=== PATIENT | female | born 1945 | race Caucasian/White ===

== ENCOUNTER → 2020-06-09 19:07 | Outpatient (REF) | payer OTHER, SELFPAY | LOC: HO.SL 19:07 | PROVIDERS: PCP Pediatrics; Visit Provider Nurse Practitioner Family | DX: R53.83 Other fatigue (principal); R40.0 Somnolence; G47.33 Obstructive sleep apnea (adult) (pediatric) | CPT/HCPCS: 95810 ==

== ENCOUNTER → 2023-10-26 07:49 | Outpatient (BNVA) | payer BC, MEDICAID, SELFPAY | PROVIDERS: PCP Pediatrics; Visit Provider Physician Assistant Surgical ==

== ENCOUNTER 2023-11-19 09:23 | Outpatient (AMB) | payer BC, MEDICAID, SELFPAY ==
--- NOTE | 2023-11-19 09:41 | MHC.OFFVISWM ---
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 Required: No Allergies oseltamivir Allergy (Unknown, Verified 11/19/23 09:44) Abdominal Pain penicillin G Allergy (Unknown, Verified 11/19/23 09:44) Abdominal Pain Medication List - Last Reconciled 11/19/23 by TAL Ruano acyclovir 400 mg PO DAILY apixaban (Eliquis) 5 mg PO BID furosemide (Lasix) 40 mg PO DAILY levothyroxine 50 mcg PO DAILY lorazepam (Ativan) 0.5 mg PO DAILY PRN omeprazole 40 mg PO DAILY Oxygen Home Use As directed HPI HPI Comments History of Present Illness Details Pt is here to re-start the [facility] Weight Management medical weight loss program. She participate in the in the medical weight loss program in 2019, she was successful and returns for further guidance. Since that time, she has gained some weight. She has developed fairly significant back pain that changed recently over the last 2 weeks when she was at the gym exercising. Several days after exercising, approximately 2 weeks ago, she began to feel a different back pain. She is scheduled to follow up with her primary care physician within a couple of weeks. Current weight is 193.2 pounds with a BMI of 35.9. She has tried multiple methods of weight loss including previous medical weight loss clinic without permanent results. She wakes at:?4 am, and goes to bed at?7 pm. Dinner is at 330 pm. Breakfast: whey protein (ON, 24 gm pro per scoop) from [employer] w 12 oz skim milk and frozen banana AM snack: skip Lunch: meat, maybe 4-6 oz and veg PM snack: cookies, fruit Dinner: cheerios w skim milk or 3-4 slices cheese After dinner: 3 ritz crackers Other snacks: as above Liquids: 24 oz water, 16 oz cranberry juice Alcohol/marijuana/tobacco intake: none Exercise: none in 2 weeks since hurting her back GERD score: 16 JAVIER score: 1 ESS score: 2 QOL score: 86 [facility] Surgical History Hx of lumpectomy Hx of hysterectomy Hx of cholecystectomy Review of Systems Const All systems reviewed & are unremarkable except as noted in HPI and below Physical Exam Const General: cooperative, healthy appearing and no acute distress Orientation/consciousness: patient oriented x3 Limitations: ambulation with walker HEENT Head: Yes normal to inspection Ears: hearing grossly normal bilaterally General nose exam: Normal external nose present Face and sinus: Yes normal facial exam Eyes General: appearance normal, both eyes and all related structures Resp Effort & Inspection: normal respiratory effort Auscultation: clear to auscultation bilaterally Cardio Rate: regular rate Rhythm: regular rhythm Heart sounds: S1 normal heart sound present and S2 normal heart sound present GI Inspection: Yes normal to inspection, No distended and Yes obesity Palpation (GI): Soft to palpation, nontender and no guarding Auscultation: normal bowel sounds Skin General skin exam: no rashes or lesions noted Neuro General: patient oriented x3 Extrem General: No edema Psych Appearance: grossly normal Mental Status: mental status grossly normal Speech and movement: Normal speech and movement present Affect: normal affect Attitude: cooperative Assessment & Plan Assessment & Plan (1) Obesity (BMI 30-39.9): Code(s): E66.9 - Obesity, unspecified Plan: Patient will restart our medical weight loss program. She wishes to continue to use her optimum nutrition protein shake. Shake, half scoop in 8 oz of skin milk Yogurt Meal with 7 forks of protein and 7 of vegetables Shake 1/4 scoop in 8 oz of skim milk Increase water to 48 oz daily or more, eliminating cranberry juice, substituting cranberry tablets as she wishes to acidify her urine for recurrent UTIs. She states she is scheduled to follow up with Urology in a month or 2. Regarding her back pain, this appears to be of acute onset approximately 2 weeks ago. She was able to identify that she experienced significant back pain on July 10. MRI done last month showed compression fracture that was not amenable to vertebroplasty, (likely due to healing). She states that she is scheduled to see her primary care doctor shortly and will discuss with him her new back pain. In the meantime she is unable to go to the gym. We will give her an exercise plan 1 she is able to have increased mobility. Coding Level of Care Code Est Pt Level 4 (13514) Diagnoses Obesity (BMI 30-39.9) E66.9
[2023-11-19 10:02] VITALS: BP 123/60; PULSE 74; TEMP 36.2; O2SAT 91; BMI 35.9
== END 2023-11-19 10:52 | disposition home or self-care (01) ==
PROVIDERS: PCP Pediatrics; Visit Provider Physician Assistant Surgical
DX: E66.9 Obesity, unspecified (principal); Z68.35 Body mass index [BMI] 35.0-35.9, adult
CPT/HCPCS: 99214

== ENCOUNTER → 2023-11-19 09:23 | Outpatient (BNVA) | payer BC, MEDICAID, SELFPAY | PROVIDERS: PCP Pediatrics; Visit Provider Physician Assistant Surgical ==

== ENCOUNTER 2023-12-24 08:58 | Outpatient (AMB) | payer BC, MEDICAID, SELFPAY ==
--- NOTE | 2023-12-24 08:48 | MHC.OFFVISWM ---
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 She was initially seen on 11/19/2023 for her 1st visit with a weight of 193.2 lb and a BMI of 35.9. She states that she had Covid since her last meeting, she also was vising family in the hospital. When she was able to able to follow the meal plan, she did well however this was only for the 1st week as she became ill after. Weight today is 186 pounds and a BMI of 34.6. She has not been texting weekly or send measurements this morning. optimum nutrition protein shake. Shake, half scoop in 8 oz of skin milk Yogurt Meal with 7 forks of protein and 7 of vegetables Shake 1/4 scoop in 8 oz of skim milk Increase water to 48 oz daily or more, eliminating cranberry juice, substituting cranberry tablets as she wishes to acidify her urine for recurrent UTIs. Exercise planning: fitness club, pool aerobics, weight machines 3 x week x1 week and then she became ill. [facility] Surgical History Hx of lumpectomy Hx of hysterectomy Hx of cholecystectomy Telehealth Telehealth Telehealth Platform: Telephone Location of provider rendering services: other Location of patient: address on file Patient Identification confirmed using: Name, : Yes Telehealth method: voice only Patient verbally consented to treatment: Yes Patient verbally consented to billing insurance company: Yes Patient informed of any privacy concerns related to visit: Yes Minutes spent on Phone/Video with Pt.: 10 Assessment & Plan Assessment & Plan (1) Obesity (BMI 30-39.9): Code(s): E66.9 - Obesity, unspecified Category: Medical Plan: She will take the next 6 weeks to adhere to the meal plan. She will additionally try to go to the fitness club 4-5 times per week. I encouraged her to text me weekly.
[2023-12-24 08:56] VITALS: BMI 34.6
== END 2023-12-24 09:21 | disposition home or self-care (01) ==
LOC: HO.HBS 08:58
PROVIDERS: PCP Pediatrics; Visit Provider Physician Assistant Surgical
DX: E66.9 Obesity, unspecified (principal); Z68.34 Body mass index [BMI] 34.0-34.9, adult
CPT/HCPCS: 99441

== ENCOUNTER → 2023-12-24 08:58 | Outpatient (BNVA) | payer BC, MEDICAID, SELFPAY | PROVIDERS: PCP Pediatrics; Visit Provider Physician Assistant Surgical ==

== ENCOUNTER 2024-02-04 08:30 | Outpatient (AMB) | payer MEDICARE, MEDICAID, SELFPAY ==
--- NOTE | 2024-02-04 08:50 | MHC.OFFVISWM ---
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 She was initially seen on 11/19/2023 for her 1st visit with a weight of 193.2 lb and a BMI of 35.9. She states that she had Covid since her last meeting, she also was vising family in the hospital. When she was able to able to follow the meal plan, she did well however this was only for the 1st week as she became ill after. Weight today is 181 pounds and a BMI of 34.6. She has not been texting weekly or send measurements this morning. Down 12.2 pounds since starting the program. optimum nutrition protein shake. 630 am Shake, half scoop in 8 oz of skin milk Yogurt 1230 pm Meal with 7 forks of protein and 7 of vegetables 5 pm Shake 1/4 scoop in 8 oz of skim milk Increase water to 48 oz daily or more, eliminating cranberry juice, substituting cranberry tablets as she wishes to acidify her urine for recurrent UTIs. 48 oz water Exercise planning: fitness club, pool aerobics, weight machines 3 x week x1 week and then she became ill. [facility] Surgical History Hx of lumpectomy Hx of hysterectomy Hx of cholecystectomy Telehealth Telehealth Telehealth Platform: Telephone Location of provider rendering services: practice address Location of patient: address on file Patient Identification confirmed using: Name, : Yes Telehealth method: voice only Patient verbally consented to treatment: Yes Patient verbally consented to billing insurance company: Yes Patient informed of any privacy concerns related to visit: Yes Minutes spent on Phone/Video with Pt.: 15 Assessment & Plan Assessment & Plan (1) Obesity (BMI 30-39.9): Code(s): E66.9 - Obesity, unspecified Category: Medical Plan: We will change her meal plan to include half scoop shake x2, meal and yogurt. Discussed with her the need to slow down her drinking of her shake as she had been doing it over only 10 minutes. Encouraged to go to the gym that she just joined which is only 2 minutes away, daily, focusing on cardio, tracking calories with a goal of 300 per day. Return to the office in follow-up in 1 month.
[2024-02-04 08:52] VITALS: BMI 33.6
== END 2024-02-04 09:00 | disposition home or self-care (01) ==
LOC: HO.HBS 10:17
PROVIDERS: PCP Pediatrics; Visit Provider Physician Assistant Surgical
DX: E66.9 Obesity, unspecified (principal); Z68.33 Body mass index [BMI] 33.0-33.9, adult
CPT/HCPCS: 99442

== ENCOUNTER → 2024-02-04 08:30 | Outpatient (BNVA) | payer MEDICARE, MEDICAID, SELFPAY | PROVIDERS: PCP Pediatrics; Visit Provider Physician Assistant Surgical | DX: E66.9 Obesity, unspecified (principal) ==

== ENCOUNTER 2024-03-08 15:42 | Outpatient (AMB) | payer MEDICARE, MEDICAID, SELFPAY ==
--- NOTE | 2024-03-08 14:11 | A.OFFVIS_ITS ---
VS Expanded 03/08/24 15:20 Height 5 ft 1.5 in Weight 182 lb BMI 33.8 Intake Visit Reasons: TV f/u [facility] Allergies oseltamivir Allergy (Unknown, Verified 11/19/23 09:44) Abdominal Pain penicillin G Allergy (Unknown, Verified 11/19/23 09:44) Abdominal Pain HPI Comments Details: This a pleasant 78-year-old female who returns to the office today in follow-up for medical weight loss clinic. She was initially seen on 11/19/2023 for her 1st visit with a weight of 193.2 lb and a BMI of 35.9. She states that she had Covid since her last meeting, she also was vising family in the hospital. When she was able to able to follow the meal plan, she did well however this was only for the 1st week as she became ill after. Weight today is 181 pounds and a BMI of 33.8. She has not been texting weekly or send measurements this morning. Down 11.2 pounds since starting the program. optimum nutrition protein shake. 630 am Shake, half scoop in 8 oz of skin milk Yogurt 1230 pm Meal with 7 forks of protein and 7 of vegetables 5 pm Shake 1/2 scoop in 8 oz of skim milk Increase water to 48 oz daily or more, eliminating cranberry juice, substituting cranberry tablets as she wishes to acidify her urine for recurrent UTIs. 48 oz water Exercise planning: has had difficulty exercising recently due to knee pain PFSH Surgical History Hx of lumpectomy Hx of hysterectomy Hx of cholecystectomy Telehealth Telehealth Telehealth Platform: Telephone Location of provider rendering services: practice address Location of patient: address on file Patient Identification confirmed using: Name, : Yes Telehealth method: voice only Patient verbally consented to treatment: Yes Patient verbally consented to billing insurance company: Yes Patient informed of any privacy concerns related to visit: Yes Minutes spent on Phone/Video with Pt.: 10 Assessment & Plan Assessment & Plan (1) Obesity (BMI 30-39.9): Code(s): E66.9 - Obesity, unspecified Category: Medical Plan: Patient generally has done well in our medical weight loss program. She has lost 11.2 lb. She did have dietary indiscretions with a trip to [place], eating lobster rolls and clams. She now is back on track with her meal plan. She has been somewhat limited in her exercise due to knee pain but is hopefully returning to exercise next week. She certainly may call the office in the future if she wishes to re-engage in the program.
[2024-03-08 15:20] VITALS: BMI 33.8
== END 2024-03-08 15:43 | disposition home or self-care (01) ==
LOC: HO.HBS 15:42
PROVIDERS: PCP Pediatrics; Visit Provider Physician Assistant Surgical
DX: E66.9 Obesity, unspecified (principal); Z68.33 Body mass index [BMI] 33.0-33.9, adult
CPT/HCPCS: 99212

== ENCOUNTER → 2024-03-08 15:42 | Outpatient (BNVA) | payer MEDICARE, MEDICAID, SELFPAY | PROVIDERS: PCP Pediatrics; Visit Provider Physician Assistant Surgical | DX: E66.9 Obesity, unspecified (principal) ==